=== PATIENT | female | born 2000 | race Caucasian/White ===

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

== ENCOUNTER → 2025-03-26 | Outpatient (RCR) ==
[~2025-03-26] MED LIST changes: -IBUP-1022 PO; +IBUP600T42 PO
== END ==
LOC: M EMPSKH 03-10 11:52
PROVIDERS: ATTEND Family Medicine
DX: Z20.828 Contact with and (suspected) exposure to other viral communicable diseases (principal)